=== PATIENT | female | born 1985 | race Caucasian/White ===

== ENCOUNTER 2018-01-24 11:55 | Inpatient (IN) | payer OTHER ==
[2018-01-24] MEDS: DEXTROSE 5%-LR 1,000 ML IV (11:30)
[2018-01-24 14:37] LABS: ADD MAN DIFF? NO
[2018-01-24 14:39] LABS: WHITE BLOOD COUNT 9.9 10^3/ul (4.8-10.8)
[2018-01-24 14:39] LABS: BASOPHILS % 0.2 % (0.0-2.0); EOSINOPHILS # 0.1 10^3/ul (0.0-0.5); EOSINOPHILS % 1.1 % (0.0-7.0); HEMATOCRIT 36.8 % (37.0-47.0); HEMOGLOBIN 12.9 g/dl (12.0-16.0); LYMPHOCYTES # 2.8 10^3/ul (0.8-2.9); LYMPHOCYTES % 28.6 % (15.0-51.0); MEAN CORPUSCULAR HEMOGLOBIN 32.5 pg (29.0-33.0); MEAN CORPUSCULAR HGB CONC 35.1 g/dl (32.0-37.0); MEAN CORPUSCULAR VOLUME 92.7 fl (82.0-101.0); MEAN PLATELET VOLUME 11.4 fl (7.4-10.4); MONOCYTE # 0.4 10^3/ul (0.3-0.9); MONOCYTES % 4.3 % (0.0-11.0); NEUTROPHIL # 6.4 10^3/ul (1.6-7.5); NEUTROPHILS % 65.3 % (39.0-77.0); PLATELET COUNT 153 10^3/UL (140-415); RED BLOOD COUNT 3.97 10^6/ul (4.20-5.40); RED CELL DISTRIBUTION WIDTH 13.2 % (11.5-14.5)
[2018-01-24] MEDS: LACTATED RINGER'S 1,000 ML IV (14:51)
[2018-01-24] MEDS ORDERED: CARBOPROST 250 MCG INJ IM ×2 (15:00→20:30)
[2018-01-24] MEDS ORDERED: METHYLERGONOVINE 0.2 MG INJ IM ×2 (15:00→20:30)
[2018-01-24] MEDS ORDERED: CEFAZOLIN 2 GM/50 ML (PMX) 50 ML IV (15:00)
[2018-01-24] MEDS ORDERED: MISOPROSTOL 200 MCG TAB PR ×2 (15:00→20:30)
[2018-01-24 15:20] LABS: INR 0.96; PROTIME 12.9 Sec (11.9-14.9)
[2018-01-24] MEDS ORDERED: morphine SULFATE/PF (10 MG/10 ML) INJ (16:31)
[2018-01-24] MEDS ORDERED: FENTAnyl 50 MCG/ML VIAL (16:32)
[2018-01-24] MEDS ORDERED: PHENYLephrine (100 MCG/ML) 5ML SYG (16:32)
[2018-01-24] MEDS ORDERED: ONDANSETRON 4 MG INJ (16:45)
[2018-01-24] MEDS ORDERED: DEXAMETHASONE 4 MG/ML 1 ML INJ (16:45)
[2018-01-24] MEDS ORDERED: ONDANSETRON 4 MG INJ IV (18:00)
[2018-01-24] MEDS ORDERED: ZOLPIDEM 5 MG TAB PO (18:00)
[2018-01-24] MEDS ORDERED: HYDROmorphONE 0.5 MG/0.5 ML SYG IV ×2 (18:00)
[2018-01-24] MEDS ORDERED: NALOXONE (0.4 MG/ML) INJ IV (18:00)
[2018-01-24] MEDS ORDERED: NALBUPHINE HCL (10 MG/1 ML) INJ IV (18:00)
[2018-01-24] MEDS: OXYTOCIN 30 UNITS/LR 500 ML IV ×2 (18:30→20:20)
[2018-01-24] MEDS: DIPHENHYDRAMINE 50 MG INJ IV (19:01)
[2018-01-24] MEDS: KETOROLAC 30 MG INJ IV (19:01)
[2018-01-24] MEDS ORDERED: OXYCODONE/ACETAMINOPHEN (5/325) TAB PO (20:30)
[2018-01-24] MEDS ORDERED: HYDROCODONE/APAP (5/325) TAB PO ×2 (20:30)
[2018-01-24] MEDS ORDERED: OXYTOCIN 30 UNITS/LR 500 ML IV (20:30)
[2018-01-24] MEDS: SENNA/DOCUSATE NA (8.6MG/50MG) TAB PO (21:00)
[2018-01-24] MEDS: CEFAZOLIN 1 GM/50 ML (PMX) 50 ML IVPB (23:52)
[2018-01-25] MEDS: OXYTOCIN 30 UNITS/LR 500 ML IV ×2 (00:13→05:41)
[2018-01-25] MEDS: KETOROLAC 30 MG INJ IV ×2 (05:40→16:49)
[2018-01-25 08:25] LABS: ADD MAN DIFF? NO
[2018-01-25 08:35] LABS: BASOPHILS % 0.1 % (0.0-2.0); EOSINOPHILS % 0.2 % (0.0-7.0); HEMATOCRIT 33.9 % (37.0-47.0); LYMPHOCYTES # 3.2 10^3/ul (0.8-2.9); LYMPHOCYTES % 22.5 % (15.0-51.0); MEAN CORPUSCULAR HEMOGLOBIN 32.3 pg (29.0-33.0); MEAN CORPUSCULAR HGB CONC 35.4 g/dl (32.0-37.0); MEAN CORPUSCULAR VOLUME 91.1 fl (82.0-101.0); MEAN PLATELET VOLUME 11.2 fl (7.4-10.4); MONOCYTES % 7.1 % (0.0-11.0); NEUTROPHIL # 9.8 10^3/ul (1.6-7.5); NEUTROPHILS % 69.5 % (39.0-77.0); PLATELET COUNT 169 10^3/UL (140-415); RED BLOOD COUNT 3.72 10^6/ul (4.20-5.40); RED CELL DISTRIBUTION WIDTH 12.9 % (11.5-14.5)
[2018-01-25 08:35] LABS: WHITE BLOOD COUNT 14.2 10^3/ul (4.8-10.8)
[2018-01-25] MEDS: SENNA/DOCUSATE NA (8.6MG/50MG) TAB PO ×2 (09:38→21:40)
[2018-01-25] MEDS: LACTATED RINGER'S 1,000 ML IV ×2 (09:58→09:59)
[2018-01-25 15:50] LABS: RAPID PLASMA REAGIN NONREACTIVE (NR)
[2018-01-25] MEDS: IBUPROFEN 600 MG TAB PO (17:43)
[2018-01-25] MEDS: OXYCODONE/ACETAMINOPHEN (5/325) TAB PO (21:40)
[2018-01-26] MEDS: IBUPROFEN 600 MG TAB PO ×4 (00:16→17:30)
[2018-01-26] MEDS: SENNA/DOCUSATE NA (8.6MG/50MG) TAB PO ×2 (10:12→21:31)
[2018-01-26] MEDS: LANOLIN 7 GM TUBE TOP (15:45)
[2018-01-27] MEDS: IBUPROFEN 600 MG TAB PO ×3 (00:01→13:09)
[2018-01-27] MEDS: INFLUENZA VIRUS VACCINE 0.5 ML SYG IM* (08:49)
[2018-01-27] MEDS: DIPHTH/TET/ACEL PERTUSS (ADULT) 0.5 ML VIAL IM* (08:49)
[2018-01-27] MEDS: SENNA/DOCUSATE NA (8.6MG/50MG) TAB PO (08:49)
== END 2018-01-27 13:40 | disposition home or self-care (01) | DRG 766 ==
LOC: OBT 11:55 → L-D 11:56 → OBT 14:13 → L-D 14:00 → PP1 20:23
PROVIDERS: Obstetrics & Gynecology
PROC: 10D00Z1 Extraction of Products of Conception, Low, Open Approach (ICD-10-PCS; principal; 2018-01-24 17:00)
DX: O34.211 Maternal care for low transverse scar from previous cesarean delivery (principal); Z37.0 Single live birth; Z3A.38 38 weeks gestation of pregnancy
CPT/HCPCS: 76818; 85025; 85610; 85730; 86592; 86850; 86900; 86901; 94760; 99464